=== PATIENT | female | born 1945 | race Caucasian/White ===

== ENCOUNTER 2020-06-23 10:29 | Inpatient (IN) | payer MEDICARE, BC ==
[~2020-06-23] VITALS: Ht 160 cm; Wt 63.0 kg
[~2020-06-23 10:29] MED LIST: ASPI-1265 PO; ATOR40TA71 PO; CARV3.122 PO; LISI-604 PO; NITR0.4T51 SL; TICA90TA PO
[2020-06-23 11:16] LABS: BASOPHILS # (AUTO) 0.1 X10'3 (0-0.2); BASOPHILS % (AUTO) 1.3 % (0-1); EOSINOPHILS # (AUTO) 0.3 X10'3 (0-0.9); EOSINOPHILS % (AUTO) 3.4 % (0-6); HEMATOCRIT 35.5 % (35.0-45.0); LYMPHOCYTES # (AUTO) 1.4 X10'3 (1.1-4.8); LYMPHOCYTES % (AUTO) 19.1 % (21-51); MEAN CORPUSCULAR HGB CONC 33.9 g/dL (33.0-36.5); MEAN CORPUSCULAR VOLUME 100.2 FL (78-98); MEAN PLATELET VOLUME 8.3 FL (7.4-10.4); MONOCYTES # (AUTO) 0.9 X10'3 (0-0.9); MONOCYTES % (AUTO) 11.9 % (2-12); NEUTROPHILS # (AUTO) 4.8 X10'3 (1.8-7.7); NEUTROPHILS % (AUTO) 64.3 % (42-75); PLATELET COUNT 274 X10'3 (140-440); RED BLOOD COUNT 3.54 X10'6 (4.20-5.60); RED CELL DISTRIBUTION WIDTH 13.4 % (11.5-14.5); WHITE BLOOD COUNT 7.5 X10'3 (4.5-11.0)
[2020-06-23 11:23] LABS: ALANINE AMINOTRANSFERASE 29 U/L (12-78); ALBUMIN 3.3 G/DL (3.4-5.0); ALBUMIN/GLOBULIN RATIO 0.7 (1.1-1.5); ALKALINE PHOSPHATASE 90 IU/L (46-116); ANION GAP 9 (8-16); ASPARTATE AMINO TRANSFERASE 29 U/L (10-37); BILIRUBIN,TOTAL 0.8 MG/DL (0.1-1.0); BLOOD UREA NITROGEN 16 MG/DL (7-18); BUN/CREATININE RATIO 18.8 (6.6-38.0); CALCIUM 9.1 MG/DL (8.5-10.1); CHLORIDE 106 MMOL/L (99-107); CREATININE 0.85 MG/DL (0.40-0.90); GLUCOSE 95 MG/DL (70-104); POTASSIUM 4.1 MMOL/L (3.5-5.1); SODIUM 138 MMOL/L (135-145); TOTAL CARBON DIOXIDE 23.4 MMOL/L (24-32); TOTAL PROTEIN 7.8 G/DL (6.4-8.2); eGFR 66 ML/MIN
--- NOTE | 2020-06-23 11:29 | NUR ---
lab called 1st troponin 1[address] lan.
[2020-06-23] MEDS ORDERED: enoxaparin 100mg/ml syringe SUBCUT ONE (12:55)
[2020-06-23] MEDS ORDERED: aspirin 81mg tab.chew PO ONE (12:55)
[2020-06-23] MEDS ORDERED: nitroGLYCERIN 0.4mg/hour patch TD ONE (12:55)
[2020-06-23] MEDS ORDERED: enoxaparin 60mg/0.6ml syringe SUBCUT ONE (13:00)
[2020-06-23] MEDS ORDERED: normal saline 1000ml 1,000 ML IV SCH (14:14)
[2020-06-23] MEDS ORDERED: ondansetron/PF 4mg/2ml inj IV PRN (14:15)
[2020-06-23] MEDS ORDERED: mag hydrox/Alum hydrox/simeth 30ml oral suspension PO PRN (14:15)
[2020-06-23] MEDS ORDERED: morphine 2 MG/ML inj. syringe IV PRN ×2 (14:15)
[2020-06-23] MEDS ORDERED: magnesium hydroxide 30ml (MOM) UD suspension PO PRN (14:15)
[2020-06-23] MEDS ORDERED: acetaminophen 325mg tablet PO PRN ×2 (14:15→21:35)
[2020-06-23] MEDS ORDERED: ASPI-1265 PO (14:45)
[2020-06-23] MEDS ORDERED: CARV-50 PO (14:45)
[2020-06-23] MEDS ORDERED: NITR0.4T48 SL (14:45)
[2020-06-23] MEDS ORDERED: ATOR40TA PO (14:45)
[2020-06-23] MEDS ORDERED: TICA90TA2 PO (14:45)
[2020-06-23] MEDS ORDERED: LISI-600 PO (14:45)
[2020-06-23 15:14] VITALS: BP 119/62
[2020-06-23] MEDS ORDERED: nitroGLYCERIN 0.4mg SUBLingual tab SL PRN (17:20)
[2020-06-23 18:00] VITALS: BP 124/69
[2020-06-23] MEDS ORDERED: furosemide 40mg/4ml inj IV ONE (18:40)
[2020-06-23] MEDS: ticagrelor 90mg tablet PO SCH (19:18)
[2020-06-23] MEDS: carVEDilol 3.125mg tablet PO SCH (19:19)
[2020-06-23] MEDS: enoxaparin 60mg/0.6ml syringe SUBCUT SCH (19:20)
--- NOTE | 2020-06-23 21:30 | NUR ---
PAGER ID: [phone] MESSAGE: Felice Hawkins. 310. NTSEMI. Seeing Migdalia tomorrow. Had stent placed last week. Having a little Headache from nitropatch. Could I get an order for Tylenol? Chris RUDOLPH Ext [phone]
[2020-06-23 22:00] VITALS: BP 91/41
[2020-06-24] VITALS (20 sets, daily range): BP systolic 85–141; BP diastolic 34–88
--- NOTE | 2020-06-24 06:26 | NUR ---
Problems reprioritized. Patient report given, questions answered & plan of care reviewed with Elle RUDOLPH.
[2020-06-24 07:16] LABS: BASOPHILS # (AUTO) 0.1 X10'3 (0-0.2); EOSINOPHILS # (AUTO) 0.2 X10'3 (0-0.9); EOSINOPHILS % (AUTO) 3.5 % (0-6); HEMATOCRIT 31.1 % (35.0-45.0); HEMOGLOBIN 10.6 g/dl (12.0-16.0); LYMPHOCYTES # (AUTO) 1.3 X10'3 (1.1-4.8); LYMPHOCYTES % (AUTO) 18.1 % (21-51); MEAN CORPUSCULAR HEMOGLOBIN 33.8 PG (27.0-31.0); MEAN CORPUSCULAR HGB CONC 34.2 g/dL (33.0-36.5); MEAN CORPUSCULAR VOLUME 99.1 FL (78-98); MEAN PLATELET VOLUME 8.4 FL (7.4-10.4); MONOCYTES # (AUTO) 0.7 X10'3 (0-0.9); NEUTROPHILS # (AUTO) 4.7 X10'3 (1.8-7.7); NEUTROPHILS % (AUTO) 67.4 % (42-75); PLATELET COUNT 274 X10'3 (140-440); RED BLOOD COUNT 3.13 X10'6 (4.20-5.60); RED CELL DISTRIBUTION WIDTH 13.3 % (11.5-14.5)
[2020-06-24] MEDS: carVEDilol 3.125mg tablet PO SCH ×2 (08:00→20:12)
[2020-06-24] MEDS: aspirin 81mg tab.chew PO SCH (08:00)
[2020-06-24] MEDS: enoxaparin 60mg/0.6ml syringe SUBCUT SCH (08:00)
[2020-06-24] MEDS ORDERED: furosemide 40mg/4ml inj IV SCH (08:00)
[2020-06-24] MEDS: atorvastatin 20mg tablet PO SCH (08:00)
[2020-06-24] MEDS: lisinopril 5mg tablet PO SCH (08:00)
--- NOTE | 2020-06-24 08:19 | NUR ---
PAGER ID: [phone] MESSAGE: 310 Connor Hawkins Pt had 2 episodes of black stools and humberto colored projectile vomiting. H&H has trended down since 1100 yesterday
[2020-06-24] MEDS: ticagrelor 90mg tablet PO SCH ×2 (09:14→20:12)
--- NOTE | 2020-06-24 09:53 | NUR ---
Pt has not had another episode of vomiting thus far but had one more small amount of black soft stool. MD aware. States Zofran effective for the nausea. Occult blood stool sample sent.
[2020-06-24 12:03] LABS: OCCULT BLOOD STOOL POSITIVE (Neg)
[2020-06-24] MEDS: pantoprazole 40MG/NS 100ML BAG 100 ML IV SCH ×4 (12:55→23:25)
[2020-06-24] MEDS ORDERED: MIDAZolam 5mg/5ml vial ONE (13:42)
[2020-06-24] MEDS ORDERED: LIDOcaine Viscous 15ml cup ONE (13:42)
[2020-06-24] MEDS ORDERED: fentaNYL/PF 50MCG/1 ML 2ML syringe ONE (13:42)
--- NOTE | 2020-06-24 16:40 | NUR ---
Pt returned from GI lab she is alert and has no s/s of distress.
--- NOTE | 2020-06-24 18:00 | NUR ---
Patient in room MED 310. I have received report from Sana RUDOLPH and had the opportunity to ask questions and assume patient care.
--- NOTE | 2020-06-24 18:51 | NUR ---
Problems reprioritized. Patient report given, questions answered & plan of care reviewed with Chris RN.
[2020-06-24 23:03] LABS: HEMATOCRIT 25.9 % (35.0-45.0); HEMOGLOBIN 8.9 g/dl (12.0-16.0); MEAN CORPUSCULAR HEMOGLOBIN 34.4 PG (27.0-31.0); MEAN CORPUSCULAR HGB CONC 34.5 g/dL (33.0-36.5); MEAN CORPUSCULAR VOLUME 99.6 FL (78-98); MEAN PLATELET VOLUME 8.3 FL (7.4-10.4); PLATELET COUNT 217 X10'3 (140-440); RED CELL DISTRIBUTION WIDTH 13.3 % (11.5-14.5); WHITE BLOOD COUNT 7.5 X10'3 (4.5-11.0)
--- NOTE | 2020-06-24 23:15 | NUR ---
PAGER ID: [phone] MESSAGE: Felice Hawkins. DX NSTEMI 310. Patient has low BP's for last few hours 80's 90's systolic now is 73/31. Patient had EGD today two bleeding ulcers fixed. HGB 8.9 down from 10.6 this morning. Giving 250 cc bolus. Any other orders? 7263
--- NOTE | 2020-06-24 23:38 | NUR ---
PAGER ID: [phone] MESSAGE: Shayy Hawkins. Looks like pt had 3.125 coreg at 1999 and brilinta. Hypotension maybe med induced. Fluids? and recheck HGB in a few hours to see if H and H drops. And transfuse if needed. EF is 45% EXT [id number]
[2020-06-25] VITALS (12 sets, daily range): BP systolic 77–129; BP diastolic 29–68
[2020-06-25] MEDS ORDERED: normal saline 1000ml 1,000 ML IV ONE
[2020-06-25 03:04] LABS: BASOPHILS % (AUTO) 0.6 % (0-1); EOSINOPHILS # (AUTO) 0.2 X10'3 (0-0.9); EOSINOPHILS % (AUTO) 2.3 % (0-6); HEMATOCRIT 23.4 % (35.0-45.0); LYMPHOCYTES # (AUTO) 1.7 X10'3 (1.1-4.8); MEAN CORPUSCULAR HEMOGLOBIN 34.3 PG (27.0-31.0); MEAN CORPUSCULAR HGB CONC 34.3 g/dL (33.0-36.5); MEAN CORPUSCULAR VOLUME 100.1 FL (78-98); MONOCYTES # (AUTO) 0.6 X10'3 (0-0.9); NEUTROPHILS # (AUTO) 4.2 X10'3 (1.8-7.7); NEUTROPHILS % (AUTO) 63.1 % (42-75); PLATELET COUNT 209 X10'3 (140-440); RED BLOOD COUNT 2.34 X10'6 (4.20-5.60); RED CELL DISTRIBUTION WIDTH 13.5 % (11.5-14.5); WHITE BLOOD COUNT 6.6 X10'3 (4.5-11.0)
[2020-06-25 03:09] LABS: ALBUMIN 2.4 G/DL (3.4-5.0); ANION GAP 8 (8-16); BLOOD UREA NITROGEN 31 MG/DL (7-18); BUN/CREATININE RATIO 34.4 (6.6-38.0); CALCIUM 7.9 MG/DL (8.5-10.1); CHLORIDE 112 MMOL/L (99-107); GLUCOSE 89 MG/DL (70-104); POTASSIUM 3.6 MMOL/L (3.5-5.1); SODIUM 142 MMOL/L (135-145); TOTAL CARBON DIOXIDE 22.5 MMOL/L (24-32); eGFR 61 ML/MIN
--- NOTE | 2020-06-25 03:22 | NUR ---
PAGER ID: [phone] MESSAGE: Shruthi RM. 310 HGB back at 8.0 and 23.4 down from 8.9 and 25.9. BP 108/50 status post fluid bolus and IV maintenance fluids. Patient continues to be asymptomatic. Chris RUDOLPH Ext [phone]
[2020-06-25] MEDS: pantoprazole 40MG/NS 100ML BAG 100 ML IV SCH ×5 (04:10→23:45)
[2020-06-25] MEDS: normal saline 1000ml 1,000 ML IV SCH ×3 (04:10→21:05)
--- NOTE | 2020-06-25 06:20 | NUR ---
Problems reprioritized. Patient report given, questions answered & plan of care reviewed with Malka RUDOLPH.
[2020-06-25] MEDS: lisinopril 5mg tablet PO SCH (08:00)
[2020-06-25] MEDS: aspirin 81mg tab.chew PO SCH (08:00)
[2020-06-25] MEDS: carVEDilol 3.125mg tablet PO SCH ×2 (08:00→21:05)
[2020-06-25] MEDS: ticagrelor 90mg tablet PO SCH ×2 (08:50→21:05)
[2020-06-25] MEDS: atorvastatin 20mg tablet PO SCH (08:50)
--- NOTE | 2020-06-25 18:00 | NUR ---
Patient in room MED 310. I have received report from Malka RUDOLPH and had the opportunity to ask questions and assume patient care.
[2020-06-26 01:17] LABS: HEMATOCRIT 27.3 % (35.0-45.0); HEMOGLOBIN 9.7 g/dl (12.0-16.0); MEAN CORPUSCULAR HEMOGLOBIN 34.4 PG (27.0-31.0); MEAN CORPUSCULAR HGB CONC 35.4 g/dL (33.0-36.5); MEAN PLATELET VOLUME 8.5 FL (7.4-10.4); PLATELET COUNT 191 X10'3 (140-440); RED BLOOD COUNT 2.82 X10'6 (4.20-5.60); WHITE BLOOD COUNT 6.3 X10'3 (4.5-11.0)
[2020-06-26 02:00] VITALS: BP 105/60
[2020-06-26] MEDS: pantoprazole 40MG/NS 100ML BAG 100 ML IV SCH ×2 (04:32→09:46)
[2020-06-26 06:00] VITALS: BP 134/59
[2020-06-26 06:10] LABS: BASOPHILS # (AUTO) 0.1 X10'3 (0-0.2); BASOPHILS % (AUTO) 0.9 % (0-1); EOSINOPHILS # (AUTO) 0.2 X10'3 (0-0.9); EOSINOPHILS % (AUTO) 3.7 % (0-6); HEMATOCRIT 27.3 % (35.0-45.0); HEMOGLOBIN 9.5 g/dl (12.0-16.0); LYMPHOCYTES # (AUTO) 1.5 X10'3 (1.1-4.8); LYMPHOCYTES % (AUTO) 24.3 % (21-51); MEAN CORPUSCULAR HEMOGLOBIN 33.7 PG (27.0-31.0); MEAN CORPUSCULAR HGB CONC 34.9 g/dL (33.0-36.5); MEAN CORPUSCULAR VOLUME 96.7 FL (78-98); MEAN PLATELET VOLUME 8.2 FL (7.4-10.4); MONOCYTES # (AUTO) 0.5 X10'3 (0-0.9); MONOCYTES % (AUTO) 8.6 % (2-12); NEUTROPHILS # (AUTO) 3.7 X10'3 (1.8-7.7); NEUTROPHILS % (AUTO) 62.5 % (42-75); PLATELET COUNT 189 X10'3 (140-440); RED BLOOD COUNT 2.83 X10'6 (4.20-5.60); RED CELL DISTRIBUTION WIDTH 14.9 % (11.5-14.5)
[2020-06-26] MEDS: normal saline 1000ml 1,000 ML IV SCH (06:52)
--- NOTE | 2020-06-26 06:52 | NUR ---
Problems reprioritized. Patient report given, questions answered & plan of care reviewed with Sana RUDOLPH.
[2020-06-26] MEDS: ticagrelor 90mg tablet PO SCH (09:42)
[2020-06-26] MEDS: carVEDilol 3.125mg tablet PO SCH (09:42)
[2020-06-26] MEDS: lisinopril 5mg tablet PO SCH (09:45)
[2020-06-26] MEDS: aspirin 81mg tab.chew PO SCH (09:46)
[2020-06-26] MEDS: atorvastatin 20mg tablet PO SCH (09:47)
[2020-06-26 10:00] VITALS: BP 117/54
[2020-06-26 14:00] VITALS: BP 122/58
[2020-06-26] MEDS ORDERED: PANT40SU2 PO (14:53)
[2020-06-26 15:30] VITALS: BP_SYST 126; BP_SYST 129; BP_SYST 134; BP_DIAS 62; BP_DIAS 64
--- NOTE | 2020-06-26 15:30 | NUR ---
Pt walked per MD request to make sure heart rate remained stable which after ambulating 200 ft it did not go above 96. Orthostatic BP done and were negative for changes as well. notified MD of results.
--- NOTE | 2020-06-26 16:15 | NUR ---
Discharge orders received. Pt has remained stable. IV in RFA discontinued with no s/s complications. IV in LFA discontinued with no s/s of complications. Discharge instructions given and also wrote out instructions for family for medications and follow- up appts needed. Pt stated understanding. All belongings accounted for. Pt taken by wheelchair to private vehicle and family to take home.
--- NOTE | 2020-06-27 11:47 | NUR ---
Transmission Technician DC follow up: unable to contact pt. 1st number, no vm avail, no answer. 2nd number no answer, no vm set-up message
== END 2020-06-26 16:05 | disposition home or self-care (01) | DRG 377 ==
LOC: ER 10:30 → ED HOLD 14:14 → MED 3N 14:55
PROVIDERS: ADMIT Family Medicine; ATTEND Family Medicine
PROC: 0W3P8ZZ Control Bleeding in Gastrointestinal Tract, Via Natural or Artificial Opening Endoscopic (ICD-10-PCS; principal; 2020-06-24)
PROC: 0DB78ZX Excision of Stomach, Pylorus, Via Natural or Artificial Opening Endoscopic, Diagnostic (ICD-10-PCS; 2020-06-24)
PROC: 30233N1 Transfusion of Nonautologous Red Blood Cells into Peripheral Vein, Percutaneous Approach (ICD-10-PCS; 2020-06-25)
DX: K26.4 Chronic or unspecified duodenal ulcer with hemorrhage (principal); I50.23 Acute on chronic systolic (congestive) heart failure; I21.A1 Myocardial infarction type 2; D62 Acute posthemorrhagic anemia; I25.110 Atherosclerotic heart disease of native coronary artery with unstable angina pectoris; E78.5 Hyperlipidemia, unspecified; I10 Essential (primary) hypertension; K44.9 Diaphragmatic hernia without obstruction or gangrene; K22.2 Esophageal obstruction; I11.0 Hypertensive heart disease with heart failure; I44.7 Left bundle-branch block, unspecified; I48.91 Unspecified atrial fibrillation; K29.70 Gastritis, unspecified, without bleeding; K21.0 Gastro-esophageal reflux disease with esophagitis; Z79.02 Long term (current) use of antithrombotics/antiplatelets; I25.2 Old myocardial infarction; Z79.82 Long term (current) use of aspirin
CPT/HCPCS: 36415; 36430; 43227; 43239; 43255; 71045; 76937; 80048; 80053; 82272; 83880; 84484; 85025; 85027; 86885; 86900; 86901; 86920; 87081; 88305; 88342; 93005; 96372; 99152; 99153; 99285; A4620; C9113; G0378; J1650; J1940; J2250; J2405; J3010; J7030; J7040; P9016